=== PATIENT | female | born 1950 | race Caucasian/White ===

== ENCOUNTER → 2020-03-12 | Outpatient (CLI) | payer MEDICARE ==
--- NOTE | 2020-03-12 15:19 | Diagnostic Imaging Report ---
INDICATION: Right hip pain. Time of exam 2:37 p.m. Two views of the right hip demonstrate normal femoral acetabular alignment. There are significant osteoarthritic changes of the right hip with significant superior and medial joint space narrowing. There is marginal spurring along the femoral head and neck junction. Femoral head and neck are intact. No fractures are seen. Right-sided rami are intact. IMPRESSION: Osteoarthritic changes to the right hip. No acute bony abnormality is detected. Dictated by: Dictated on workstation # [id number]
== END ==
LOC: RAD FS 14:24
PROVIDERS: ATTEND Nurse Practitioner
DX: M16.11 Unilateral primary osteoarthritis, right hip (principal)
CPT/HCPCS: 73502

== ENCOUNTER → 2020-03-12 | Outpatient (CLI) | payer MEDICARE ==
--- NOTE | 2020-03-12 14:19 | Diagnostic Imaging Report ---
INDICATION: Low back pain. TIME OF EXAM: 01:41 p.m. TECHNIQUE: Frontal and lateral views of the lumbar spine were obtained. FINDINGS: Curvature is normal. There is minimal anterolisthesis of L4 on L5. Vertebral body heights and disc spaces are well maintained. No fracture is identified. There are some atherosclerotic calcifications within the abdominal aorta. Calcification in the right upper quadrant is noted, consistent with a gallstone. IMPRESSION: 1. No acute bony abnormality detected. 2. Cholelithiasis. Dictated by: Dictated on workstation # [id number]
== END ==
LOC: RAD FS 13:12
PROVIDERS: ATTEND Nurse Practitioner
DX: K80.20 Calculus of gallbladder without cholecystitis without obstruction (principal); M54.5 Low back pain
CPT/HCPCS: 72100